=== PATIENT | female | born 1985 | race Caucasian/White ===

== ENCOUNTER 2016-09-21 | Inpatient (IN) | payer BC ==
[2016-09-21] MEDS ORDERED: ZYRTEC10 M7 PO (17:02)
== END 2016-09-23 12:30 | DRG 775 ==
DX: O34.219 Maternal care for unspecified type scar from previous cesarean delivery (principal); O48.0 Post-term pregnancy; Z3A.41 41 weeks gestation of pregnancy; Z88.0 Allergy status to penicillin; Z88.1 Allergy status to other antibiotic agents; Z37.0 Single live birth